=== PATIENT | male | born 1970 | race African-American/Black ===

== ENCOUNTER 2021-07-09 13:45 | Outpatient (CLI) | payer OTHER ==
[2021-07-09 21:32] LABS: CHLAMYDIA TRACHOMATIS DNA NEGATIVE (NEGATIVE)
[2021-07-09 21:36] LABS: NEISSERIA GONORRHOEAE DNA POSITIVE (NEGATIVE)
== END 2021-07-09 23:59 | disposition home or self-care (01) ==
LOC: LAB.N 13:45
PROVIDERS: ATTEND Family Medicine
DX: R36.9 Urethral discharge, unspecified (principal)
CPT/HCPCS: 87086; 87491; 87591; 87661

== ENCOUNTER 2022-04-04 11:27 | Emergency (ER) | payer OTHER ==
[2022-04-04 11:47] VITALS: BP 153/100
--- NOTE | 2022-04-04 12:20 | XRAY Report ---
PROCEDURE: Ribs w/PA Chest LT INDICATIONS: Fall, left rib pain TECHNIQUE: Two views of the left ribs were acquired, along with a single view chest. COMPARISON: None. FINDINGS: Surgical changes and devices: None. Bones and chest wall: Mildly displaced fracture of the left lateral 10th rib, immediately subjacent t o the reported area of pain as denoted by metallic BB marker. No suspicious bony lesions. Overlying soft tissues appear unremarkable. Lungs and pleura: Tiny left pleural effusion. Clear lungs and pleural spaces otherwise. Mediastinum: Mediastinal contours appear normal. Heart size is normal. IMPRESSION: Mildly displaced fracture of the left lateral 10th rib, corresponding to the area of the patient's pa in. Mild left costophrenic angle blunting likely represents a tiny associated pleural effusion. There is no pneumothorax. Reviewed by: Wild Victoria MD on 04/04/2022 12:19 PM PDT Approved by: Wild Victoria MD on 04/04/2022 12:19 PM PDT Station ID: [id number]
== END 2022-04-04 12:45 | disposition left against medical advice (07) ==
LOC: ED 11:27
DX: Z53.21 Procedure and treatment not carried out due to patient leaving prior to being seen by health care provider (principal)

== ENCOUNTER 2022-04-08 19:01 | Emergency (ER) | payer OTHER ==
[2022-04-08 19:17] VITALS: BP 146/87
[2022-04-08] MEDS ORDERED: KETOROLAC 60 MG/2 ML VIAL IM STA (19:40)
--- NOTE | 2022-04-08 19:42 | ED Physician Documentation ---
History of Present Illness - Stated complaint Stated Complaint: RIB PX - Chief complaint Chief Complaint: Trauma Ch/Bk - Additonal information Additional information: 51-year-old male presents emergency department for evaluation of persistent left-sided rib pain. Reports that about 9 or 10 days ago he was attempting to jump over a wooden fence when the board gave out and he fell to the ground. He fell onto a rock and has had persistent left posterior rib pain since. It hurts to take a deep breath. No fevers, no cough no hemoptysis. He has not taken anything [id number] for pain. Review of Systems Constitutional: reports: Reviewed and negative Throat: reports: Reviewed and negative Cardiac: reports: Reviewed and negative Respiratory: reports: Reviewed and negative Skin: denies: Lesions, Abrasion (s) Musculoskeletal: denies: Back pain (Left posterior rib wall pain) Neurologic: reports: Reviewed and negative PD PAST MEDICAL HISTORY - Allergies Allergies/Adverse Reactions: Allergies Allergy/AdvReac Type Severity Reaction Status Date / Time No Known Drug Allergies Allergy Verified 04/08/22 19:16 PD ED PE NORMAL - General General: Alert and oriented X 3, No acute distress - HEENT HEENT: Atraumatic, Moist mucous membranes - Neck Neck: Supple, no meningeal sign, No adenopathy - Cardiac Cardiac: RRR, No murmur, No gallop - Respiratory Respiratory: No respiratory distress, Clear bilaterally, Other (Patient is able to take a full deep breath. No hypoxia. Unremarkable cardiopulmonary auscultation.) Results - Vitals Vitals: Vital Signs - 24 hr 04/08/22 19:13 Temperature 36.3 C L Heart Rate 101 H Respiratory 16 Rate Blood Pressure 146/87 H O2 Saturation 99 Oxygen O2 Source Room air - Rads (name of study) ribs with pa chest Radiology: Final report received (No definite rib fractures are found. No pneumothorax identified.) PD MEDICAL DECISION MAKING - ED course Complexity details: reviewed results, re-evaluated patient, considered differential, d/w patient ED course: 51-year-old male presents emergency department for evaluation of left posterior chest wall/rib wall pain after falling off a fence and onto a rock about 9 to 10 days ago. On exam there is tenderness elicited with the left posterior rib wall but no crepitus ecchymosis or erythema was seen. He has no hypoxia or dyspnea on exam. Chest x-ray with rib series on the left side shows no obvious findings of fracture. Over the last week or so the patient has not taken any [id number] pain medicine. He was administered Toradol here in the emergency department with good improvement in symptoms. We discussed that the etiology of his symptoms likely is rib wall contusion versus occult fracture though the management of both is similar. He is discharged home in stable condition. Emergent return precautions discussed. Departure - Departure Disposition: 01 Home, Self Care Clinical Impression: Contusion of rib on left side Qualifiers: Encounter type: initial encounter Qualified Code(s): S20.212A - Contusion of left front wall of thorax, initial encounter Condition: Stable Record reviewed to determine appropriate education?: Yes Instructions: ED Contusion Vs Minor Fx Rib Comments: Ramy harris are seen today in the emergency department for pain in the left-sided rib wall after falling off a fence 9 or 10 days ago. The x-ray of your chest and ribs does not show an obvious fracture. It is likely that you have a fairly significant contusion or bruise. However a very minor or occult rib fracture is not fully ruled out. I do encourage you to take 500 mg of Tylenol 2-3 times a day or alternate with 600 mg of ibuprofen also 2-3 times a day. It is important that you take these medications to help control your pain so that you are taking full deep breaths and do not develop pneumonia moving forward. If at any point you find that your symptoms are worsening, you have severe shortness of air, develop any fevers, bloody sputum then please return imm ediately to the ER for second evaluation.
--- NOTE | 2022-04-08 20:06 | XRAY Report ---
PROCEDURE: Ribs w/PA Chest LT INDICATIONS: ITS.REASON: FALL left rib pain TECHNIQUE: 2 views of the left ribs were acquired, along with a single view chest. COMPARISON: None. FINDINGS: Surgical changes and devices: None. Bones and chest wall: No fractures or dislocations. No suspicious bony lesions. Overlying soft tis sues appear unremarkable. Lungs and pleura: No pleural effusions or pneumothorax. Lungs appear clear. Mediastinum: Mediastinal contours appear normal. Heart size is normal. IMPRESSION: No definite rib fractures found. No pneumothorax identified. Source of left chest pain is not found a t this time. Delayed plain films may assist in detecting a healing rib fracture is clinically warrant ed. Reviewed by: Fitz Webb MD on 04/08/2022 8:05 PM PDT Approved by: Fitz Webb MD on 04/08/2022 8:05 PM PDT Station ID: [id number]
== END 2022-04-08 20:28 | disposition home or self-care (01) ==
LOC: ED 19:01
DX: S20.212A Contusion of left front wall of thorax, initial encounter (principal); W17.89XA Other fall from one level to another, initial encounter; Y93.39 Activity, other involving climbing, rappelling and jumping off
CPT/HCPCS: 96372; 99282; 99283